=== PATIENT | female | born 1955 | race Caucasian/White ===

== ENCOUNTER 2017-12-01 10:57 | Outpatient (CLI) | payer BC ==
--- NOTE | 2017-12-01 14:55 | MMO ---
BILATERAL SCREENING MAMMOGRAMS: Date: 12/01/17 Comparison made to prior exams from 2017 and 2016. This patient's mammogram was interpreted with the assistance of computer-aided detection. FINDINGS: Scattered fibroglandular densities. Benign calcification in the right breast. No evidence of mass or distortion. No evidence of interval change. Recommend one year follow-up. IMPRESSION: BIRADS 2: Benign Finding(s) POS: [facility]
== END 2017-12-01 10:58 | disposition home or self-care (01) ==
LOC: SCSMAMMO 10:57
PROVIDERS: ATTEND Family Medicine
DX: Z12.31 Encounter for screening mammogram for malignant neoplasm of breast (principal)
CPT/HCPCS: 77067